=== PATIENT | female | born 1960 | race Caucasian/White ===

== ENCOUNTER 2018-04-13 16:38 | Observation (INO) | payer MEDICAID ==
[~2018-04-13] VITALS: Ht 154.9 cm; Wt 60.0 kg
[2018-04-13] MEDS ORDERED: LORazepam 2 MG/ML, 1ML ONE (17:13)
[2018-04-13] MEDS ORDERED: ZIPRASIDONE 20 MG INJ IM ONE ×2 (17:13→17:30)
[2018-04-13] MEDS ORDERED: PLEASE ENTER HEIGHT AND WEIGHT MC SCH (17:30)
[2018-04-13] MEDS ORDERED: PLEASE ENTER ALLERGIES MC SCH (17:30)
[2018-04-13] MEDS ORDERED: LORazepam 2 MG/ML, 1ML IM PRN (17:30)
[2018-04-13 17:50] LABS: BASOPHILS # (AUTO) 0.03 x10^3/uL (0-0.1); BASOPHILS % (AUTO) 0 % (0-1); EOSINOPHILS # (AUTO) 0.04 x10^3/uL (0-0.4); EOSINOPHILS % (AUTO) 1 % (1-7); LYMPHOCYTES # (AUTO) 2.01 x10^3/uL (1-3.4); LYMPHOCYTES % (AUTO) 25 % (22-44); MD NO; MEAN CORPUSCULAR HEMOGLOBIN 25.4 pg (27.0-34.8); MEAN CORPUSCULAR HGB CONC 32.5 g/dL (32.4-35.8); MEAN CORPUSCULAR VOLUME 78.1 fL (80-100); MEAN PLATELET VOLUME 8.9 fL (7.4-10.4); MONOCYTES % (AUTO) 6 % (2-9); NEUTROPHILS # (AUTO) 5.34 x10^3/uL (1.8-6.8); NEUTROPHILS % (AUTO) 67 % (42-75); PLATELET COUNT 353 x10^3/uL (130-400); RED BLOOD COUNT 5.66 x10^6/uL (3.82-5.3); RED CELL DISTRIBUTION WIDTH 15.9 % (9.6-15.2)
[2018-04-13 18:02] LABS: ALANINE AMINOTRANSFERASE 19 U/L (12-78); ALBUMIN 3.7 g/dL (3.4-5.0); ANION GAP 11 mmol/L (5-15); CALCIUM 8.5 mg/dL (8.5-10.1); CHLORIDE 108 mmol/L (98-107)
[2018-04-13 18:13] LABS: ACETAMINOPHEN < 2 mcg/mL (10-30); ALKALINE PHOSPHATASE 77 U/L (45-117); BILIRUBIN,TOTAL 0.3 mg/dL (0.2-1.0); SALICYLATE LEVEL < 1.7 mg/dL (2.8-20.0); TOTAL PROTEIN 7.6 g/dL (6.4-8.2)
[2018-04-13] MEDS ORDERED: LISINOPRIL 20 MG TABLET ONE (20:16)
[2018-04-13] MEDS ORDERED: POLYETHYLENE GLYCOL 17 GM PACKET PO PRN (20:30)
[2018-04-13] MEDS ORDERED: LISINOPRIL 20 MG TABLET PO ONE (20:30)
[2018-04-13 20:47] LABS: INTERNATIONAL NORMALIZED RATIO 0.97 (0.93-1.1)
[2018-04-13] MEDS ORDERED: AMLODIPINE 5 MG TABLET PO SCH (21:00)
[2018-04-13 21:01] LABS: FREE T4 (FREE THYROXINE) 0.82 ng/dL (0.76-1.46); THYROID STIMULATING HORMONE 1.35 mIU/L (0.358-3.740)
[2018-04-13 21:30] LABS: MICROSCOPIC NOT IND
[2018-04-13 21:38] LABS: CULTURE INDICATED? NO
[2018-04-13 21:42] LABS: AMPHETAMINE SCREEN, URINE Negative (Negative); BARBITURATE SCREEN, URINE Negative (Negative); BENZODIAZEPINE SCREEN, URINE Negative (Negative); CANNABINOID SCREEN, URINE Negative (Negative); COCAINE SCREEN, URINE Negative (Negative); METHADONE SCREEN, URINE Negative (Negative); OPIATE SCREEN, URINE Negative (Negative)
[2018-04-13 23:07] VITALS: BP 100/66
[2018-04-14 04:51] LABS: ALBUMIN 3.3 g/dL (3.4-5.0); ANION GAP 7 mmol/L (5-15); CALCIUM 8.5 mg/dL (8.5-10.1); CHLORIDE 107 mmol/L (98-107)
[2018-04-14 04:53] LABS: BASOPHILS # (AUTO) 0.05 x10^3/uL (0-0.1); BASOPHILS % (AUTO) 1 % (0-1); EOSINOPHILS # (AUTO) 0.12 x10^3/uL (0-0.4); EOSINOPHILS % (AUTO) 1 % (1-7); LYMPHOCYTES # (AUTO) 2.89 x10^3/uL (1-3.4); LYMPHOCYTES % (AUTO) 33 % (22-44); MD NO; MEAN CORPUSCULAR HEMOGLOBIN 25.4 pg (27.0-34.8); MEAN CORPUSCULAR HGB CONC 32.6 g/dL (32.4-35.8); MEAN CORPUSCULAR VOLUME 77.9 fL (80-100); MEAN PLATELET VOLUME 8.9 fL (7.4-10.4); MONOCYTES # (AUTO) 0.68 x10^3/uL (0.2-0.8); MONOCYTES % (AUTO) 8 % (2-9); NEUTROPHILS # (AUTO) 5.13 x10^3/uL (1.8-6.8); NEUTROPHILS % (AUTO) 58 % (42-75); PLATELET COUNT 340 x10^3/uL (130-400); RED BLOOD COUNT 5.31 x10^6/uL (3.82-5.3); RED CELL DISTRIBUTION WIDTH 16.3 % (9.6-15.2)
[2018-04-14 04:56] LABS: ALANINE AMINOTRANSFERASE 18 U/L (12-78); ALKALINE PHOSPHATASE 68 U/L (45-117); BILIRUBIN,TOTAL 0.7 mg/dL (0.2-1.0); CREATININE 0.63 mg/dL (0.55-1.02); TOTAL PROTEIN 6.8 g/dL (6.4-8.2)
[2018-04-14 08:00] VITALS: BP 98/61
[2018-04-14] MEDS: SENNA/DOCUSATE TABLET PO SCH (09:00)
[2018-04-14] MEDS: HYDROcodone/APAP 5/325 TABLET PO PRN (11:37)
[2018-04-14 19:32] VITALS: BP 102/63
[2018-04-15 07:30] VITALS: BP 119/66
[2018-04-15] MEDS: SENNA/DOCUSATE TABLET PO SCH (09:00)
[2018-04-15] MEDS: HYDROcodone/APAP 5/325 TABLET PO PRN (10:12)
[2018-04-15] MEDS: LIDODERM 5% PATCH TD SCH (18:02)
[2018-04-15 19:20] VITALS: BP 116/75
[2018-04-15] MEDS: LORazepam 1MG TABLET PO PRN (21:08)
[2018-04-16 08:00] VITALS: BP 110/73
[2018-04-16] MEDS: SENNA/DOCUSATE TABLET PO SCH (09:00)
[2018-04-16] MEDS: HYDROcodone/APAP 5/325 TABLET PO PRN (09:35)
[2018-04-16] MEDS: LIDODERM 5% PATCH TD SCH ×2 (17:00→21:12)
[2018-04-16 20:14] VITALS: BP 127/72
[2018-04-16] MEDS: LORazepam 1MG TABLET PO PRN (22:05)
[2018-04-17 07:53] VITALS: BP 124/79
[2018-04-17] MEDS: HYDROcodone/APAP 5/325 TABLET PO PRN (08:27)
[2018-04-17] MEDS: SENNA/DOCUSATE TABLET PO SCH (08:28)
[2018-04-17 19:28] VITALS: BP 120/76
[2018-04-17] MEDS: LORazepam 1MG TABLET PO PRN (22:15)
[2018-04-18 07:21] VITALS: BP 108/74
[2018-04-18] MEDS: SENNA/DOCUSATE TABLET PO SCH (08:15)
[2018-04-18] MEDS ORDERED: HYDROcodone/APAP 5/325 TABLET PO PRN (11:30)
[2018-04-18] MEDS ORDERED: HYDROcodone/APAP 5/325 TABLET ONE (11:31)
== END 2018-04-18 16:22 | disposition home or self-care (01) ==
LOC: ED 20:43 → EDIP 20:44 → 2N 22:57
PROVIDERS: ADMIT Hospitalist; ATTEND Hospitalist
DX: R45.851 Suicidal ideations (principal); J44.9 Chronic obstructive pulmonary disease, unspecified; I10 Essential (primary) hypertension; F31.9 Bipolar disorder, unspecified
CPT/HCPCS: 36415; 80053; 80307; 80329; 81003; 82728; 83540; 83550; 84439; 84443; 85025; 85610; 96372; 99285; G0378; J2060; J3486; G0480

== ENCOUNTER 2020-08-10 01:50 | Emergency (ER) | payer MEDICAID ==
[~2020-08-10] VITALS: Ht 162.6 cm; Wt 70.0 kg
[2020-08-10 01:57] VITALS: BP 156/87
--- NOTE | 2020-08-10 02:04 | NUR ---
cut left index finger with knife yesterday, now looks worse, pain and redness to left index finger
[2020-08-10] MEDS ORDERED: CLINDAMYCIN 300 MG CAPSULE ONE (02:16)
[2020-08-10] MEDS ORDERED: CLINDAMYCIN 300 MG CAPSULE PO ONE (02:30)
== END 2020-08-10 03:03 | disposition home or self-care (01) ==
LOC: ED 02:20
DX: S61.211A Laceration without foreign body of left index finger without damage to nail, initial encounter (principal); L03.012 Cellulitis of left finger; J44.9 Chronic obstructive pulmonary disease, unspecified; I10 Essential (primary) hypertension; Z87.891 Personal history of nicotine dependence; X58.XXXA Exposure to other specified factors, initial encounter; Y93.89 Activity, other specified; Y92.89 Other specified places as the place of occurrence of the external cause; Y99.8 Other external cause status
CPT/HCPCS: 99283